=== PATIENT | male | born 1980 | race Asian ===

== ENCOUNTER 2019-05-02 14:24 | Emergency (ER) | payer MEDICAID ==
[~2019-05-02] VITALS: Ht 172.7 cm; Wt 86.0 kg
[2019-05-02] MEDS ORDERED: KETOROLAC 30MG/ML VIAL IM ONE (17:00)
[2019-05-02 17:38] VITALS: BP 139/83
== END 2019-05-02 18:13 | disposition home or self-care (01) ==
LOC: ER 14:35
DX: M25.561 Pain in right knee (principal); R03.0 Elevated blood-pressure reading, without diagnosis of hypertension
CPT/HCPCS: 99283